=== PATIENT | male | born 1965 | race African-American/Black ===

== ENCOUNTER 2017-07-15 15:35 | Inpatient (IN) | payer OTHER ==
[2017-07-15 17:01] VITALS: BMI 27.8
--- NOTE | 2017-07-15 19:36 | HP ---
CIWA Score - CIWA Score Nausea/Vomitin-No Nausea/No Vomiting Muscle Tremors: 2 Anxiety: 3 Agitation: 3 Paroxysmal Sweats: 2 Orientation: 0-Oriented Tacttile Disturbances: 0-None Auditory Disturbances: 1-Very Mild Visual Disturbances: 1-Very Mild Sensitivity Headache: 0-None Present CIWA-Ar Total Score: 12 Admission ROS S - HPI Chief Complaint: "I am here for detox, I've been running the streets for 8 day straight, I have not taken any of my medications" History of Present Illness: 52 yo male with alcohol, nicotine and cocaine dependence is here seeking detox. PMHX: HTN, depression, schizophrenia, bipolar, anxiety. Reports auditory hallucination with the last episode 6 months ago. Denies suicidal / homicidal ideation or suicide attempt. Last detox 2 years ago at [facility]. Denies any problems with the law. Denies hx of seizures, DTR, overdose. Patient plans to attend outpatient program upon detox completion. Reports longest period of sobriety 2 years. Exam Limitations: No Limitations - Ebola screening Have you traveled outside of the country in the last 21 days: No Have you had contact with anyone from an Ebola affected area: No Have you been sick,other than usual withdrawal symptoms: No Do you have a fever: No - Review of Systems Constitutional: Changes in sleep, Unintentional Wgt. Loss (10 lbs over the past 8 days) EENT: reports: No Symptoms Reported Respiratory: reports: Cough (x 8 days when outdoors cough occurs) Cardiac: reports: No Symptoms Reported GI: reports: Diarrhea, Poor Appetite, Poor Fluid Intake, Abdominal cramping : reports: Other (dark urine dark fabrizio colro) Musculoskeletal: reports: No Symptoms Reported Integumentary: reports: Other (dry skin) Neuro: reports: See HPI Endocrine: reports: Increased Thirst Hematology: reports: No Symptoms Reported Psychiatric: reports: Orientated x3, Anxious Other Systems: Reviewed and Negative Patient History - Patient Medical History Hx Anemia: No Hx Asthma: No Hx Chronic Obstructive Pulmonary Disease (COPD): No Hx Cancer: No Hx Cardiac Disorders: No Hx Congestive Heart Failure: No Hx Hypertension: Yes (on MEDs ) Hx Hypercholesterolemia: No Hx Pacemaker: No HX Cerebrovascular Accident: No Hx Seizures: No Hx Dementia: No Hx Diabetes: No Hx Gastrointestinal Disorders: No Hx Liver Disease: No Hx Genitourinary Disorders: No Hx Sexually Transmitted Disorders: No Hx Renal Disease (ESRD): No Hx Thyroid Disease: No Hx Human Immunodeficiency Virus (HIV): No Hx Hepatitis C: No Hx Depression: Yes Hx Suicide Attempt: No Hx Bipolar Disorder: Yes Hx Schizophrenia: Yes - Patient Surgical History Past Surgical History: No Hx Neurologic Surgery: No Hx Cataract Extraction: No Hx Cardiac Surgery: No Hx Lung Surgery: No Hx Breast Surgery: No Hx Breast Biopsy: No Hx Abdominal Surgery: No Hx Appendectomy: No Hx Cholecystectomy: No Hx Genitourinary Surgery: No Hx Section: No Anesthesia Reaction: No - PPD History Previous Implant?: No Documented Results: Negative w/o proof PPD to be Administered?: Yes - Reproductive History Patient is a Female of Child Bearing Age (11 -55 yrs old): No - Smoking Cessation Smoking history: Current every day smoker Have you smoked in the past 12 months: Yes Aproximately how many cigarettes per day: 20 Hx Chewing Tobacco Use: No Initiated information on smoking cessation: Yes 'Breaking Loose' booklet given: 07/15/17 - Substance & Tx. History Hx Alcohol Use: Yes Hx Substance Use: Yes Substance Use Type: Alcohol, Cocaine Hx Substance Use Treatment: Yes (Detox 2 years ago at [facility]) - Substances Abused Alcohol Route: Oral Frequency: Daily Amount used: 2 pints hennesy / gin / voda or 4 lokos x 3 cans Age of first use: 16 Date of Last Use: 07/14/17 Cocaine Route: Inhalation Frequency: Daily Amount used: $200 - $300 Age of first use: 18 Date of Last Use: 07/14/17 Family Disease History - Family Disease History Family Disease History: Other: Father (unknown ), Mother (, asthma ) Admission Physical Exam S - Vital Signs Vital Signs: Vital Signs - 24 hr 07/15/17 16:59 Temperature 97.7 F Pulse Rate 75 Respiratory 20 Rate Blood Pressure 169/98 - Physical General Appearance: Yes: Appropriately Dressed, Anxious HEENTM: Yes: EOMI, Hearing grossly Normal, Normal ENT Inspection, Normocephalic , Normal Voice, VONNIE, Pharynx Normal, Tm's normal, Other (dry mucous membranes) Respiratory: Yes: Chest Non-Tender, Lungs Clear, Normal Breath Sounds, No Respiratory Distress, No Accessory Muscle Use Breast: Yes: Breast Exam Deferred Cardiology: Yes: Regular Rhythm, Regular Rate Abdominal: Yes: Normal Bowel Sounds, Non Tender, Soft, Protuberent Genitourinary: Yes: Within Normal Limits Back: Yes: Normal Inspection Musculoskeletal: Yes: full range of Motion, Gait Steady, Pelvis Stable Extremities: Yes: Normal Capillary Refill, Normal Range of Motion, Non-Tender, Tremors, Other (nail clubbing b/t) Neurological: Yes: manager membership II-XII NML intact, Fully Oriented, Alert, Motor Strength 5/5, Depressed Affect Integumentary: Yes: Normal Color, Warm, Moist Lymphatic: Yes: Within Normal Limits - Diagnostic (1) Elevated blood pressure reading with diagnosis of hypertension Current Visit: Yes Status: Acute (2) Hypertension Current Visit: Yes Status: Chronic Qualifiers: Hypertension type: essential hypertension Qualified Code(s): I10 - Essential (primary) hypertension (3) Clubbing of nails Current Visit: Yes Status: Chronic (4) Dehydration Current Visit: Yes Status: Acute (5) Dry skin Current Visit: Yes Status: Acute (6) Psychiatric disorder Current Visit: Yes Status: Acute (7) Anxious mood Current Visit: Yes Status: Acute (8) Nicotine dependence Current Visit: Yes Status: Acute Qualifiers: Nicotine product type: cigarettes (9) Alcohol dependence with withdrawal Current Visit: Yes Status: Acute Qualifiers: Complication of substance-induced condition: uncomplicated Qualified Code(s ): F10.230 - Alcohol dependence with withdrawal, uncomplicated (10) Cocaine dependence Current Visit: Yes Status: Acute Qualifiers: Substance use status: uncomplicated Qualified Code(s): F14.20 - Cocaine dependence, uncomplicated Cleared for Admission [facility] - Detox or Rehab [facility] Level of Care: Medically Managed Detox Regimen/Protocol: Librium [facility] Breath Alcohol Content Breath Alcohol Content: 0 Urine Drug Screen - Results Drug Screen Negative: No Urine Drug Screen Results: HIRO-Cocaine
[2017-07-15] MEDS ORDERED: chlordiazePOXIDE HCL 25 MG CAPSULE PO ONE (19:46)
[2017-07-15] MEDS ORDERED: MAG HYDROX/AL HYDROX/SIMETH 30 ML UNIT-DOSE CUP PO PRN (19:46)
[2017-07-15] MEDS ORDERED: MAGNESIUM CITRATE 300 ML BOTTLE PO PRN (19:46)
[2017-07-15] MEDS ORDERED: P-EPHED 60MG/TRIPROLIDI 2.5MG TABLET PO PRN (19:46)
[2017-07-15] MEDS ORDERED: guaiFENesin/D-METHORPHAN HB 10 ML UNIT-DOSE CUPS PO PRN (19:46)
[2017-07-15] MEDS ORDERED: chlordiazePOXIDE HCL 25 MG CAPSULE PO PRN (19:46)
[2017-07-15] MEDS ORDERED: LOPERAMIDE HCL 2 MG CAPSULE PO PRN (19:46)
[2017-07-15] MEDS ORDERED: MENTHOL/PHENOL 1 EACH UD MM PRN (19:46)
[2017-07-15] MEDS ORDERED: IBUPROFEN 400 MG TABLET (FP) PO PRN (19:46)
[2017-07-15] MEDS ORDERED: hydrOXYzine PAMOATE 50 MG CAPSULE (FP) PO PRN (19:46)
[2017-07-15] MEDS ORDERED: MAGNESIUM HYDROX 2400MG/30ML ORAL SUSPENSION 30 ML CUP PO PRN (19:46)
[2017-07-15] MEDS ORDERED: NICOTINE POLACRILEX 2 MG GUM BC PRN (19:46)
[2017-07-15] MEDS ORDERED: PATIENT'S OWN MEDICATION (NON-FORMULARY) (Nifedipine [Nifedipine Er] 60 MG) PO SCH (20:00)
[2017-07-15] MEDS: NIFEdipine E.R 60 MG TABLET (UD) PO SCH (21:08)
[2017-07-15] MEDS: ASPIRIN 81 MG CHEWABLE TABLETS PO SCH (21:08)
[2017-07-15 21:48] LABS: URINE APPEARANCE CLEAR; URINE BILIRUBIN NEGATIVE (<2.0 mg/dL); URINE BLOOD NEGATIVE (NEGATIVE); URINE COLOR YELLOW; URINE GLUCOSE (UA) NEGATIVE (NEGATIVE); URINE KETONE NEGATIVE (NEGATIVE); URINE NITRITE NEGATIVE (NEGATIVE); URINE PROTEIN NEGATIVE (NEGATIVE); URINE UROBILINOGEN 4.0 E.U/dl mg/dL (0.2-1.0)
[2017-07-15] MEDS ORDERED: MELATONIN 5 MG TABLETS PO PRN (22:00)
[2017-07-15 22:12] LABS: URINE LEUK ESTERASE 2+ (NEGATIVE)
[2017-07-15 22:18] LABS: EPI CELLS RARE /HPF (FEW); URINE BACTERIA RARE /hpf (NONE SEEN); URINE HYALINE CAST 5 /lpf; URINE MUCUS RARE
[2017-07-15] MEDS: THIAMINE HCL 100 MG TABLET (FP) PO SCH (23:21)
[2017-07-15] MEDS: chlordiazePOXIDE HCL 25 MG CAPSULE PO SCH (23:21)
[2017-07-16] MEDS: chlordiazePOXIDE HCL 25 MG CAPSULE PO SCH ×4 (05:38→22:07)
[2017-07-16 10:04] LABS: HEMATOCRIT 40.1 % (35.4-49); HEMOGLOBIN 13.6 GM/dL (11.7-16.9); MCH 29.7 pg (25.7-33.7); MCHC 33.9 g/dl (32.0-35.9); MEAN CELL VOLUME 87.5 fl (80-96); MEAN PLT VOLUME 9.2 fl (7.5-11.1); PLATELET COUNT 235 K/MM3 (134-434); RBC 4.58 M/mm3 (4.00-5.60); RDW 16.1 % (11.9-15.9); WHITE BLOOD COUNT 8.4 K/mm3 (4.0-10.0)
[2017-07-16] MEDS: ASPIRIN 81 MG CHEWABLE TABLETS PO SCH (10:26)
[2017-07-16] MEDS: NIFEdipine E.R 60 MG TABLET (UD) PO SCH (10:26)
[2017-07-16] MEDS: PRENATAL VITAMINS W/ FOLIC ACID TABLET (FP) PO SCH (10:26)
[2017-07-16] MEDS: NICOTINE 21 MG/24 HOURS TOPICAL PATCH TD SCH (10:27)
--- NOTE | 2017-07-16 10:42 | CONSULT ---
[facility] Psychiatric Consult - Data Date of interview: 07/16/17 Admission source: [facility] Identifying data: Pt. is a 52 year old single male, father of three, unemployed , currently living with family, and SSI pending. Pt. admitted to for alcohol and cocaine dependence. Substance Abuse History: Following information confirmed with Mr. Maki: Smoking Cessation. Smoking history: Current every day smoker. Have you smoked in the past 12 months: Yes. Aproximately how many cigarettes per day: 20. Hx Chewing Tobacco Use: No. Initiated information on smoking cessation: Yes. ' Breaking Loose' booklet given: 07/15/17. - Substance & Tx. History. Hx Alcohol Use: Yes. Hx Substance Use: Yes. Substance Use Type: Alcohol, Cocaine. Hx Substance Use Treatment: Yes (Detox 2 years ago at [facility]) . - Substances Abused. Alcohol. Route: Oral. Frequency: Daily. Amount used: 2 pints hennesy / gin / voda or 4 lokos x 3 cans. Age of first use: 16. Date of Last Use: 07/14/17. Cocaine. Route: Inhalation. Frequency: Daily. Amount used: $200 - $300. Age of first use: 18. Date of Last Use: 01/21 Medical History: hypertension. Psychiatric History: In April of 2017 patient was evaluated at the [facility] at [facility] on [address] [place] [address] for three days then discharged. Patient's most recent psychiatric hospitalization was [address] [facility]. Pt. reports a diagnosis of Bipolar disorder. Outpatient care is provided by the [facility]. Pt. states he is prescribed risperdal and trazodone. States he has not taken the risperdal in eight days and the trazodone in over one month. As per pharmacy claims patient received a prescription of risperdal 1mg BID X5 days on 06/14/17 and trazodone 150mg on 04/28/17. Pt. refusing to resume either medication while in detox. States he plans on seeing his outpatient provider after discharge. Pt. denies h/o suicide attempt. Pt. currently denies suicidal and homicidal ideation. Physical/Sexual Abuse/Trauma History: Denies. Mental Status Exam - Mental Status Exam Alert and Oriented to: Time, Place, Person Cognitive Function: Good Patient Appearance: Well Groomed Mood: Euthymic Affect: Appropriate Patient Behavior: Appropriate, Cooperative Speech Pattern: Appropriate Voice Loudness: Normal Thought Process: Goal Oriented Thought Disorder: Not Present Hallucinations: Denies Suicidal Ideation: Denies Homicidal Ideation: Denies Insight/Judgement: Poor Sleep: Fair Appetite: Fair Muscle strength/Tone: Normal Gait/Station: Normal Psychiatric Findings - Problem List ([place] 1, 2,3) (1) Alcohol dependence with withdrawal Current Visit: Yes Status: Acute Qualifiers: Complication of substance-induced condition: uncomplicated Qualified Code(s ): F10.230 - Alcohol dependence with withdrawal, uncomplicated (2) Nicotine dependence Current Visit: Yes Status: Acute Qualifiers: Nicotine product type: cigarettes (3) Bipolar disorder Current Visit: No Status: Chronic Comment: Self reports. Is presribed risperdal 1mg BID but is nonadherent to medication. - Initial Treatment Plan Initial Treatment Plan: Psychoeducation provided. Detoxification provided. Pt. educated on the importance for accepting medication to reduce the risk of decompensating. No psychosis or bizarre behavior noted. Will continue to monitor.
[2017-07-16 10:53] LABS: CALCIUM 8.3 mg/dL (8.5-10.1); CHLORIDE 106 mmol/L (98-107); POTASSIUM 3.4 mmol/L (3.5-5.1); SODIUM 142 mmol/L (136-145)
[2017-07-16 11:01] LABS: ALBUMIN 3.1 g/dl (3.4-5.0); ALK PHOS 73 U/L (45-117); ANION GAP 8 (8-16); BILIRUBIN,TOTAL 0.3 mg/dL (0.2-1.0); BLOOD UREA NITROGEN 15 mg/dL (7-18); CO2 28 mmol/L (21-32); CREATININE 1.6 mg/dL (0.7-1.3); GLUCOSE,RANDOM 93 mg/dL (74-106); SGOT/AST 46 U/L (15-37); SGPT/ALT 37 U/L (12-78); TOT PROT 6.4 g/dl (6.4-8.2)
--- NOTE | 2017-07-16 13:32 | EKG ---
Test Reason : Blood Pressure : / mmHG Vent. Rate : 085 BPM Atrial Rate : 085 BPM P-R Int : 126 ms QRS Dur : 084 ms QT Int : 354 ms P-R-T Axes : -03 026 102 degrees QTc Int : 421 ms NORMAL SINUS RHYTHM MODERATE VOLTAGE CRITERIA FOR LVH, MAY BE NORMAL VARIANT NONSPECIFIC ST AND T WAVE ABNORMALITY ABNORMAL ECG NO PREVIOUS ECGS AVAILABLE Confirmed by OTTO LANGE MD ([id number]) on 07/16/2017 1:31:50 PM Referred By: Confirmed By:OTTO LANGE MD
[2017-07-16] MEDS: hydrALAZINE HCL 50 MG TABLET (FP) PO SCH (14:40)
--- NOTE | 2017-07-16 16:50 | PN ---
[facility] CIWA - CIWA Score Nausea/Vomitin-No Nausea/No Vomiting Muscle Tremors: 3 Anxiety: 3 Agitation: 2 Paroxysmal Sweats: 3 Orientation: 0-Oriented Tacttile Disturbances: 2-Mild Itch/Numbness/Burn Auditory Disturbances: 2-Mild Harshness/Frighten Visual Disturbances: 0-None Headache: 0-None Present CIWA-Ar Total Score: 15 B[facility] Progress Note (SOAP) Subjective: Tremors, Sweating, Anxious, Diarrhea. Objective: PATIENT A & O X 3, OBSERVED AMBULATING ON UNIT. NO ACUTE DISTRESS. PATIENT DENIES CHEST PAIN. 07/16/17 16:51 Vital Signs Temperature 96 F L 07/16/17 13:15 Pulse Rate 70 07/16/17 13:15 Respiratory Rate 16 07/16/17 13:15 Blood Pressure 129/78 07/16/17 13:15 O2 Sat by Pulse Oximetry (%) Laboratory Tests 07/15/17 07/16/17 07/16/17 20:20 07:00 07:00 WBC 8.4 RBC 4.58 Hgb 13.6 Hct 40.1 MCV 87.5 MCH 29.7 MCHC 33.9 RDW 16.1 H Plt Count 235 MPV 9.2 Sodium 142 Potassium 3.4 L Chloride 106 Carbon Dioxide 28 Anion Gap 8 BUN 15 Creatinine 1.6 H Creat Clearance w eGFR 45.62 Random Glucose 93 Calcium 8.3 L Total Bilirubin 0.3 AST 46 H ALT 37 Alkaline Phosphatase 73 Total Protein 6.4 Albumin 3.1 L Urine Color Yellow Urine Appearance Clear Urine pH 6.0 Ur Specific [place] 1.017 Urine Protein Negative Urine Glucose (UA) Negative Urine Ketones Negative Urine Blood Negative Urine Nitrite Negative Urine Bilirubin Negative Urine Urobilinogen 4.0 e.u/dl Ur Leukocyte Esterase 2+ H Urine WBC (Auto) 53 Urine RBC (Auto) 7 Ur Epithelial Cells Rare Urine Bacteria Rare Hyaline Casts 5 Urine Mucus Rare HIV 1&2 Antibody Screen HIV P24 Antigen 07/16/17 07:00 WBC RBC Hgb Hct MCV MCH MCHC RDW Plt Count MPV Sodium Potassium Chloride Carbon Dioxide Anion Gap BUN Creatinine Creat Clearance w eGFR Random Glucose Calcium Total Bilirubin AST ALT Alkaline Phosphatase Total Protein Albumin Urine Color Urine Appearance Urine pH Ur Specific [place] Urine Protein Urine Glucose (UA) Urine Ketones Urine Blood Urine Nitrite Urine Bilirubin Urine Urobilinogen Ur Leukocyte Esterase Urine WBC (Auto) Urine RBC (Auto) Ur Epithelial Cells Urine Bacteria Hyaline Casts Urine Mucus HIV 1&2 Antibody Screen Negative HIV P24 Antigen Negative LABS NOTED. RPR RESULT PENDING. 07/16/17 16:53 Assessment: 07/16/17 16:52 WITHDRAWAL SYMPTOMS. Plan: CONTINUE DETOX. REPEAT UA WITH URINE C + S FOR ADMISSION UA ABNORMALITIES. K-DUR, 20 MEQ PO BID. D/C MAGNESIUM-CONTAINING MEDS AND IBUPROFEN FOR ABNORMAL ADMISSION RENAL LAB VALUES.
[2017-07-16] MEDS: POTASSIUM CHLORIDE TABS 20 MEQ TABLET.ER (FP) PO SCH (17:56)
[2017-07-16] MEDS: THIAMINE HCL 100 MG TABLET (FP) PO SCH (21:48)
[2017-07-17 02:06] LABS: URINE APPEARANCE CLEAR; URINE BILIRUBIN NEGATIVE (<2.0 mg/dL); URINE BLOOD NEGATIVE (NEGATIVE); URINE COLOR LTYELLOW; URINE GLUCOSE (UA) NEGATIVE (NEGATIVE); URINE KETONE NEGATIVE (NEGATIVE); URINE LEUK ESTERASE TRACE (NEGATIVE); URINE NITRITE NEGATIVE (NEGATIVE); URINE PROTEIN NEGATIVE (NEGATIVE)
[2017-07-17] MEDS: chlordiazePOXIDE HCL 25 MG CAPSULE PO SCH ×3 (05:59→17:44)
[2017-07-17] MEDS: PRENATAL VITAMINS W/ FOLIC ACID TABLET (FP) PO SCH (10:55)
[2017-07-17] MEDS: NICOTINE 21 MG/24 HOURS TOPICAL PATCH TD SCH (10:55)
[2017-07-17] MEDS: NIFEdipine E.R 60 MG TABLET (UD) PO SCH (10:55)
[2017-07-17] MEDS: POTASSIUM CHLORIDE TABS 20 MEQ TABLET.ER (FP) PO SCH ×2 (10:55→17:44)
[2017-07-17] MEDS: ASPIRIN 81 MG CHEWABLE TABLETS PO SCH (10:55)
[2017-07-17] MEDS: hydrALAZINE HCL 50 MG TABLET (FP) PO SCH (11:26)
--- NOTE | 2017-07-17 14:07 | PN ---
[facility] CIWA - CIWA Score Nausea/Vomitin-No Nausea/No Vomiting Muscle Tremors: 4-Moderate,w/Arms Extend Anxiety: 4-Mod. Anxious/Guarded Paroxysmal Sweats: 1-Minimal Palms Moist Orientation: 0-Oriented Tacttile Disturbances: 0-None Auditory Disturbances: 0-None Visual Disturbances: 0-None Headache: 0-None Present [facility] Progress Note (SOAP) Subjective: ANXIETY,SWEATS,FATGUE. Objective: 07/17/17 14:05 Vital Signs Temperature 97.1 F L 07/17/17 13:25 Pulse Rate 78 07/17/17 13:25 Respiratory Rate 18 07/17/17 13:25 Blood Pressure 152/79 07/17/17 13:25 O2 Sat by Pulse Oximetry (%) Laboratory Last Values WBC 8.4 K/mm3 (4.0-10.0) 07/16/17 07:00 RBC 4.58 M/mm3 (4.00-5.60) 07/16/17 07:00 Hgb 13.6 GM/dL (11.7-16.9) 07/16/17 07:00 Hct 40.1 % (35.4-49) 07/16/17 07:00 MCV 87.5 fl (80-96) 07/16/17 07:00 MCH 29.7 pg (25.7-33.7) 07/16/17 07:00 MCHC 33.9 g/dl (32.0-35.9) 07/16/17 07:00 RDW 16.1 % (11.9-15.9) H 07/16/17 07:00 Plt Count 235 K/MM3 (134-434) 07/16/17 07:00 MPV 9.2 fl (7.5-11.1) 07/16/17 07:00 Sodium 142 mmol/L (136-145) 07/16/17 07:00 Potassium 3.4 mmol/L (3.5-5.1) L 07/16/17 07:00 Chloride 106 mmol/L (98-107) 07/16/17 07:00 Carbon Dioxide 28 mmol/L (21-32) 07/16/17 07:00 Anion Gap 8 (8-16) 07/16/17 07:00 BUN 15 mg/dL (7-18) 07/16/17 07:00 Creatinine 1.6 mg/dL (0.7-1.3) H 07/16/17 07:00 Creat Clearance w eGFR 45.62 (>60) 07/16/17 07:00 Random Glucose 93 mg/dL (74-106) 07/16/17 07:00 Calcium 8.3 mg/dL (8.5-10.1) L 07/16/17 07:00 Total Bilirubin 0.3 mg/dL (0.2-1.0) 07/16/17 07:00 AST 46 U/L (15-37) H 07/16/17 07:00 ALT 37 U/L (12-78) 07/16/17 07:00 Alkaline Phosphatase 73 U/L (45-117) 07/16/17 07:00 Total Protein 6.4 g/dl (6.4-8.2) 07/16/17 07:00 Albumin 3.1 g/dl (3.4-5.0) L 07/16/17 07:00 Urine Color Ltyellow 07/17/17 00:05 Urine Appearance Clear 07/17/17 00:05 Urine pH 7.0 (5.0-8.0) 07/17/17 00:05 Ur Specific [place] 1.011 (1.001-1.035) 07/17/17 00:05 Urine Protein Negative (NEGATIVE) 07/17/17 00:05 Urine Glucose (UA) Negative (NEGATIVE) 07/17/17 00:05 Urine Ketones Negative (NEGATIVE) 07/17/17 00:05 Urine Blood Negative (NEGATIVE) 07/17/17 00:05 Urine Nitrite Negative (NEGATIVE) 07/17/17 00:05 Urine Bilirubin Negative (<2.0 mg/dL) 07/17/17 00:05 Urine Urobilinogen 2.0 mg/dL (0.2-1.0) 07/17/17 00:05 Ur Leukocyte Esterase Trace (NEGATIVE) 07/17/17 00:05 Urine WBC (Auto) 6 /hpf (3-5) 07/17/17 00:05 Urine RBC (Auto) <1 /hpf (0-3) 07/17/17 00:05 Ur Epithelial Cells Rare /HPF (FEW) 07/15/17 20:20 Urine Bacteria Rare /hpf (NONE SEEN) 07/15/17 20:20 Hyaline Casts 5 /lpf 07/15/17 20:20 Urine Mucus Rare 07/15/17 20:20 RPR Titer Nonreactive (NONREACTIVE) 07/16/17 07:00 HIV 1&2 Antibody Screen Negative 07/16/17 07:00 HIV P24 Antigen Negative 07/16/17 07:00 REPEAT UA IMPROVED Assessment: 07/17/17 14:05 WITHDRAWAL SX Plan: CONTINUE DETOX [facility] PENDING
[2017-07-17] MEDS: chlordiazePOXIDE 5 MG CAPSULE PO SCH (22:24)
[2017-07-17] MEDS: THIAMINE HCL 100 MG TABLET (FP) PO SCH (22:24)
[2017-07-18] MEDS: chlordiazePOXIDE 5 MG CAPSULE PO SCH ×3 (05:51→17:40)
[2017-07-18] MEDS: ACETAMINOPHEN 325 MG TABLET (FP) PO PRN ×3 (05:51→21:21)
[2017-07-18] MEDS: ASPIRIN 81 MG CHEWABLE TABLETS PO SCH (10:49)
[2017-07-18] MEDS: NIFEdipine E.R 60 MG TABLET (UD) PO SCH (10:49)
[2017-07-18] MEDS: POTASSIUM CHLORIDE TABS 20 MEQ TABLET.ER (FP) PO SCH ×2 (10:49→17:40)
[2017-07-18] MEDS: PRENATAL VITAMINS W/ FOLIC ACID TABLET (FP) PO SCH (10:49)
[2017-07-18] MEDS: NICOTINE 21 MG/24 HOURS TOPICAL PATCH TD SCH (10:49)
[2017-07-18] MEDS: hydrALAZINE HCL 50 MG TABLET (FP) PO SCH (10:49)
--- NOTE | 2017-07-18 18:26 | PN ---
[facility] Progress Note (SOAP) Subjective: Sweating, Body Aches, Anxious. Objective: PATIENT A & O X 3, OBSERVED AMBULATING ON UNIT. NO ACUTE DISTRESS. 07/18/17 18:22 Vital Signs Temperature 96.6 F L 07/18/17 18:07 Pulse Rate 78 07/18/17 18:07 Respiratory Rate 16 07/18/17 18:07 Blood Pressure 146/80 07/18/17 18:07 O2 Sat by Pulse Oximetry (%) Laboratory Tests 07/15/17 07/16/17 07/16/17 20:20 07:00 07:00 WBC 8.4 RBC 4.58 Hgb 13.6 Hct 40.1 MCV 87.5 MCH 29.7 MCHC 33.9 RDW 16.1 H Plt Count 235 MPV 9.2 Sodium 142 Potassium 3.4 L Chloride 106 Carbon Dioxide 28 Anion Gap 8 BUN 15 Creatinine 1.6 H Creat Clearance w eGFR 45.62 Random Glucose 93 Calcium 8.3 L Total Bilirubin 0.3 AST 46 H ALT 37 Alkaline Phosphatase 73 Total Protein 6.4 Albumin 3.1 L Urine Color Yellow Urine Appearance Clear Urine pH 6.0 Ur Specific [place] 1.017 Urine Protein Negative Urine Glucose (UA) Negative Urine Ketones Negative Urine Blood Negative Urine Nitrite Negative Urine Bilirubin Negative Urine Urobilinogen 4.0 e.u/dl Ur Leukocyte Esterase 2+ H Urine WBC (Auto) 53 Urine RBC (Auto) 7 Ur Epithelial Cells Rare Urine Bacteria Rare Hyaline Casts 5 Urine Mucus Rare RPR Titer HIV 1&2 Antibody Screen HIV P24 Antigen 07/16/17 07/16/17 07/17/17 07:00 07:00 00:05 WBC RBC Hgb Hct MCV MCH MCHC RDW Plt Count MPV Sodium Potassium Chloride Carbon Dioxide Anion Gap BUN Creatinine Creat Clearance w eGFR Random Glucose Calcium Total Bilirubin AST ALT Alkaline Phosphatase Total Protein Albumin Urine Color Ltyellow Urine Appearance Clear Urine pH 7.0 Ur Specific [place] 1.011 Urine Protein Negative Urine Glucose (UA) Negative Urine Ketones Negative Urine Blood Negative Urine Nitrite Negative Urine Bilirubin Negative Urine Urobilinogen 2.0 Ur Leukocyte Esterase Trace Urine WBC (Auto) 6 Urine RBC (Auto) <1 Ur Epithelial Cells Urine Bacteria Hyaline Casts Urine Mucus RPR Titer Nonreactive HIV 1&2 Antibody Screen Negative HIV P24 Antigen Negative LABS NOTED.URINE C + S INCONCLUSIVE (CONTAMINATED); HOWEVER, REPEAT UA IMPROVED FROM ADMISSION UA AND PATIENT SCHEDULED FOR DISCHARGE FROM DETOX TOMORROW. PATIENT ADVISED TO FOLLOW-UP WITH [employer] MANAGER AFTER DISCHARGE FROM DETOX FOR FURTHER EVALUATION. 07/18/17 18:23 07/18/17 18:24 Assessment: 07/18/17 18:23 WITHDRAWAL SYMPTOMS. Plan: CONTINUE DETOX. INCREASE DAILY PO FLUID INTAKE.
[2017-07-18] MEDS: THIAMINE HCL 100 MG TABLET (FP) PO SCH (21:30)
[2017-07-18] MEDS: chlordiazePOXIDE HCL 10 MG CAPSULE PO SCH (23:08)
[2017-07-19] MEDS: chlordiazePOXIDE HCL 10 MG CAPSULE PO SCH (06:02)
[2017-07-19] MEDS: ACETAMINOPHEN 325 MG TABLET (FP) PO PRN (06:03)
[2017-07-19 06:27] VITALS: BP 138/80; PULSE 59; TEMP 96.6
--- NOTE | 2017-07-19 09:07 | DS ---
[facility] Detox Discharge Summary Admission Date: 07/15/17 Discharge Date: 07/19/17 - History Present History: Alcohol Dependence, Cocaine Dependence - Physical Exam Results Vital Signs: Vital Signs Temperature 96.6 F L 07/19/17 06:27 Pulse Rate 59 L 07/19/17 06:27 Respiratory Rate 07/19/17 06:27 Blood Pressure 138/80 07/19/17 06:27 O2 Sat by Pulse Oximetry (%) - Treatment Hospital Course: Detox Protocol Followed, Detoxed Safely, Responded well, Discharged Condition Good, Rehab Referral Accepted - Medication Discharge Medications: Ambulatory Orders Aspirin [Aspirin] 81 mg PO DAILY 07/15/17 Nifedipine [Nifedipine ER] 60 mg PO DAILY 07/15/17 Risperidone [Risperidone] 1 mg PO DAILY 07/15/17 Risperidone [Risperidone] 1 mg PO DAILY 07/15/17 hydrALAZINE HCL [Apresoline -] 50 mg PO DAILY 07/15/17 - Diagnosis (1) Alcohol dependence with withdrawal Current Visit: Yes Status: Chronic Qualifiers: Complication of substance-induced condition: uncomplicated Qualified Code(s ): F10.230 - Alcohol dependence with withdrawal, uncomplicated (2) Anxious mood Current Visit: Yes Status: Chronic (3) Cocaine dependence Current Visit: Yes Status: Chronic Qualifiers: Substance use status: uncomplicated Qualified Code(s): F14.20 - Cocaine dependence, uncomplicated (4) Dehydration Current Visit: Yes Status: Acute (5) Elevated blood pressure reading with diagnosis of hypertension Current Visit: Yes Status: Acute (6) Nicotine dependence Current Visit: Yes Status: Chronic Qualifiers: Nicotine product type: cigarettes Substance use status: uncomplicated Qualified Code(s): F17.210 - Nicotine dependence, cigarettes, uncomplicated (7) Psychiatric disorder Current Visit: Yes Status: Acute (8) Clubbing of nails Current Visit: Yes Status: Chronic (9) Dry skin Current Visit: Yes Status: Chronic (10) Hypertension Current Visit: Yes Status: Chronic Qualifiers: Hypertension type: essential hypertension Qualified Code(s): I10 - Essential (primary) hypertension (11) Bipolar disorder Current Visit: No Status: Chronic - AMA Did Patient Leave Against Medical Advice: No
== END 2017-07-19 09:37 | disposition home or self-care (01) | DRG 774 ==
LOC: YASAS 15:35 → Y3N 18:48
PROVIDERS: ADMIT Internal Medicine; ATTEND Internal Medicine
PROC: HZ2ZZZZ Detoxification Services for Substance Abuse Treatment (ICD-10-PCS; principal; 2017-07-15)
DX: F10.230 Alcohol dependence with withdrawal, uncomplicated (principal); F14.20 Cocaine dependence, uncomplicated; F17.210 Nicotine dependence, cigarettes, uncomplicated; F31.9 Bipolar disorder, unspecified; F41.9 Anxiety disorder, unspecified; I10 Essential (primary) hypertension; E86.0 Dehydration; L85.3 Xerosis cutis; R68.3 Clubbing of fingers
CPT/HCPCS: 36415; 80053; 81003; 81015; 85027; 86593; 87086; 87389; 93005; 93010